=== PATIENT | male | born 1985 | race Caucasian/White ===

== ENCOUNTER 2021-04-09 13:28 | Emergency (ER) | payer OTHER, MEDICARE, MEDICAID, SELFPAY ==
--- NOTE | ~2021-04-09 | XR_ITS ---
EXAMINATION: RIGHT FOOT AND ANKLE X-RAY CLINICAL INFORMATION: Pain COMPARISON: None TECHNIQUE: 3 views of the right foot and 3 views of the right ankle FINDINGS: Right ankle: There are soft tissue ossifications inferior to the lateral malleolus. These appear well corticated with smooth margins and are more suggestive of old trauma than acute trauma. No definite acute fracture is seen. The ankle mortise is normal. There is lateral soft tissue swelling. Right foot: Bone alignment is normal. No fracture or dislocation is seen. Joint spaces are normal. There are small accessory perineal ossicles. Soft tissues are otherwise normal. XR/XR foot RT min 3V IMPRESSION: Lateral soft tissue swelling at the ankle. Well-corticated soft tissue ossifications inferior to the lateral malleolus more suggestive of old injury. No definite acute fracture seen.
--- NOTE | ~2021-04-09 | XR_ITS ---
EXAMINATION: RIGHT FOOT AND ANKLE X-RAY CLINICAL INFORMATION: Pain COMPARISON: None TECHNIQUE: 3 views of the right foot and 3 views of the right ankle FINDINGS: Right ankle: There are soft tissue ossifications inferior to the lateral malleolus. These appear well corticated with smooth margins and are more suggestive of old trauma than acute trauma. No definite acute fracture is seen. The ankle mortise is normal. There is lateral soft tissue swelling. Right foot: Bone alignment is normal. No fracture or dislocation is seen. Joint spaces are normal. There are small accessory perineal ossicles. Soft tissues are otherwise normal. XR/XR ankle RT 2V IMPRESSION: Lateral soft tissue swelling at the ankle. Well-corticated soft tissue ossifications inferior to the lateral malleolus more suggestive of old injury. No definite acute fracture seen.
[2021-04-09 14:29] VITALS: BP 111/76; PULSE 84; RESP 20; TEMP 36.7; O2SAT 98; BMI 23.7
[2021-04-09 15:57] VITALS: BP 148/88; PULSE 64; RESP 16; TEMP 36.1; O2SAT 99
--- NOTE | 2021-04-09 16:40 | ED.LOWEXIN ---
HPI - Extremity Injury (Lower) General Chief Complaint: Extremity Injury, Lower Stated Complaint: running and heard a pop Time Seen by Provider: 04/09/21 14:49 Source: patient Mode of arrival: wheelchair Limitations: no limitations History of Present Illness HPI Narrative: 35-year-old male presents for right ankle pain. [place] got his foot caught, and he inverted his ankle. Now he cannot bear weight on his right foot. He has no numbness or tingling in his toes or his foot, but has swelling on the lateral side of his right ankle. Related Data Allergies Allergy/AdvReac Type Severity Reaction Status Date / Time aripiprazole [From Abilify] Allergy Palpitation Verified 04/09/21 16:44 s Review of Systems Review of Systems: Constitutional : No Weight loss, No Fever, No Chills, No Night Sweats,No Fatigue, No Malaise ENT/Mouth : No Hearing loss, No Ear Pain, No Nasal Congestion, NoSinus Pain, No Hoarseness, No sore throat, No Rhinorrhea, NoSwallowing Difficulty Eyes: No Eye Pain, No Swelling, No Redness, No Foreign Body, NoDischarge, No Vision Changes Cardiovascular : No Chest Pain, No SOB, No Dyspnea on Exertion, NoOrthopnea, No Edema, No Palpitations Respiratory : No Cough, No Sputum, No Wheezing, No Smoke Exposure, No Dyspnea Gastrointestinal : No Nausea, No Vomiting, No Diarrhea, NoConstipation, No abdominal Pain, No Hematochezia, No Melena Genitourinary : no irregular bleeding, No Dysuria, No UrinaryFrequency, No Hematuria, No Urinary Incontinence, No Urgency, No FlankPain, No Urinary Flow Changes, No Hesitancy Musculoskeletal : ankle pain, right ankle swelling Skin : No Skin Lesions, No rash Neuro : No Weakness, No Numbness, No Paresthesias, No Loss ofConsciousness, No Dizziness, No Headache Yes all other systems are reviewed and are negative [facility] Past Medical History Medical History (Updated 04/09/21 @ 16:50 by AJ Arevalo) Schizo affective schizophrenia Surgical History (Updated 04/09/21 @ 14:32 by Araceli Barrow) History of facial surgery Social History Social History Advance Directives: No Advance Directives Information Provided: No Physical Exam Vital Signs: Vital Signs: Last Vital Signs Temp 97.0 F 04/09/21 15:57 Pulse 64 04/09/21 15:57 Resp 16 04/09/21 15:57 BP 148/88 H 04/09/21 15:57 Pulse Ox 99 04/09/21 15:57 Body Mass Index 23.7 Appearance: Alert. Oriented X3. No acute distress. Head: Normal external exam. Normocephalic. Atraumatic. ?No Graham signs noted. No raccoon eyes noted Eyes: PERRLA. EOMI. Conjunctiva and sclera normal. Eyelids normal. Neck: Normal inspection. Neck supple. FROM. No adenopathy. Thyroid Normal. No meningeal signs. No neck mass noted. CVS: Normal heart rate and rhythm. Heart sound normal. Pulses normal throughout. ?No murmurs/rales/gallops. Respiratory: No respiratory distress. Painless inspiration. Breath sounds normal. No wheezes/rales/rhonchi noted. Chest nontender. ??No accessory muscle usage noted or decreased air movement noted. Back: ?No CVA tenderness. ?Full range of motion noted. ?No rashes/lesion/induration/fluctuance or signs of infection noted. Skin: Skin warm and dry. ?Normal skin color. ?Normal skin turgor. No rashes/lesions/lacerations noted. Extremities: left lateral ankle swelling, tenderness and erythema. Neuro: Oriented X 3. ?No motor deficit. ?No sensory deficit. ?Reflexes normal. ?No focal neuro deficits noted. Vascular: + 2 distal pedal pulses/+2 dorsalis pedis b/l. ?Normal cap refill. ?No cyanosis noted to lower extremity toes nails. Course Course Course Narrative: 35-year-old presents with right ankle injury. X-ray shows right lateral soft tissue swelling, intact ankle mortise, no acute fracture or dislocation. On exam, patient has a ATLF sprain, lateral right swelling and tenderness. Provided Aircast, crutches, counseled rest, ice, compression, elevation, follow up with Ortho, return if worsening pain Discharge Plan Discharge Clinical Impression: Ankle sprain and strain Patient Disposition: Home, Self-Care Instructions: Ankle Sprain (ED), Crutch Instructions (ED), R.I.C.E. Treatment (ED) Additional Instructions: Please baby your ankle as we discussed, use the crutches and do not bear weight on your right ankle until you are seen by orthopedics. Please rest your right ankle, put ice on it for 10 minutes at a time 6 times a day, use the ankle splint as compression, and elevate your foot when you are able. As we discussed, the more you take care of this now, the less she will have trouble later. Please call Orthopedics at [phone]. Do not return to work until orthopedic sees you and clears you for work. Please alternate Tylenol and ibuprofen for pain. Take 1 or the other every 4 hours. For example, at midnight take 1000 mg of Tylenol, then at 4:00 a.m. take 800 mg ibuprofen, at 8:00 a.m. take 1000 mg of Tylenol, at noon take 800 mg of ibuprofen, at 4:00 p.m. take 1000 mg of Tylenol, at 8:00 p.m. take 800 mg of ibuprofen. Do not exceed 3000 mg of Tylenol in 24 hours. This method is proven to be as effective as an opioid for pain control. Referrals: Stas Hernandez MD [Physician] - 2 days (left ankle sprain) Stand Alone Forms: Work/School Release
== END 2021-04-09 17:14 | disposition home or self-care (01) ==
PROVIDERS: Emergency Provider Emergency Medicine; PCP Internal Medicine
DX: S93.401A Sprain of unspecified ligament of right ankle, initial encounter (principal); S96.911A Strain of unspecified muscle and tendon at ankle and foot level, right foot, initial encounter; X50.1XXA Overexertion from prolonged static or awkward postures, initial encounter; Y93.02 Activity, running; Y92.828 Other wilderness area as the place of occurrence of the external cause; Y99.9 Unspecified external cause status
CPT/HCPCS: 73600; 73630; 99283; 99284

== ENCOUNTER 2021-04-11 15:37 | Emergency (ER) | payer OTHER, MEDICARE, MEDICAID, SELFPAY ==
--- NOTE | ~2021-04-11 | US_ITS ---
EXAMINATION: NONINVASIVE ASSESSMENT OF THE ARTERIES OF THE RIGHT LOWER EXTREMITY Siva Steiner MD CLINICAL INFORMATION: Right foot/ankle injury with numbness TECHNIQUE: Right lower extremity duplex ultrasound was performed with velocity measurements and waveform analysis in the common femoral arteries, profunda femoris arteries, proximal mid and distal superficial femoral arteries and tibial vessels. This study was performed only at rest. COMPARISON: None FINDINGS: Velocities in cm/sec and phasicity as well as the presence of plaque are reported below. Multiphasic flow is present throughout. No significant plaque is detected. RIGHT LEG: Common Femoral: 85 Profunda Femoris: 72 Proximal SFA: 78 Mid SFA: 89 Distal SFA: 82 Popliteal: 45 Posterior tibial: 46 US/US arterial duplex LE RT IMPRESSION: There is no evidence of any hemodynamically significant lower extremity arterial disease by pressure, waveform or duplex Doppler criteria at rest.
--- NOTE | ~2021-04-11 | XR_ITS ---
EXAMINATION: XR TIBIA AND FIBULA, RIGHT CLINICAL INFORMATION: Trauma with left foot and ankle swelling COMPARISON: 04/09/2021 TECHNIQUE: AP and lateral views of the right tibia and fibula were obtained. FINDINGS: Again seen is lateral soft tissue swelling but significantly improved when compared with the study from 2 days ago. Well-corticated bony density seen adjacent to the lateral malleolus which were also seen previously and are indicative of remote trauma rather than an acute injury. No acute finding is seen. XR/XR tibia fibula RT 2V IMPRESSION: Improving soft tissue swelling lateral malleolus. No evidence of an acute injury.
[2021-04-11 15:44] VITALS: BP 111/66; PULSE 69; RESP 24; TEMP 32; O2SAT 97; BMI 23.7
[2021-04-11 17:13] VITALS: BP 105/65; PULSE 55; RESP 16; O2SAT 98
--- NOTE | 2021-04-11 17:20 | PC.NURSE ---
Patient in NAD, breathing even and unlabored. Patient reporting pain is manageable at this time. Pending US.
--- NOTE | 2021-04-11 19:44 | ED.EXTPRO ---
HPI - Extremity Problem General Chief complaint: Extremity Problem Stated complaint: Leg numbness Time Seen by Provider: 04/11/21 15:50 Source: patient Mode of arrival: ambulatory Limitations: no limitations History of Present Illness HPI Narrative: 35-year-old male who presents emergency department for evaluation of numbness of his right leg. The patient states that [place] he stepped on a rock and inverted his right foot and ankle causing an ankle injury, this occurred on 04/09/2021. Patient was seen here in the emergency department and had a negative x-ray of his ankle and was treated with a stirrup splint and crutches. The patient states that he has now developed numbness of his right foot, ankle, the back of his knee and the back of his thigh. He states the numbness is a constant sensation, he denies pain in these areas, he denies pain in his back. The patient states that he has been taking ibuprofen and Tylenol occasionally for his pain. He denied any weakness of his lower extremity. He denied loss of bowel or bladder control. Related Data Previous Rx's Medication Instructions Recorded prednisone 20 mg tablet 60 mg PO DAILY 5 Days #15 tab 04/11/21 Allergies Allergy/AdvReac Type Severity Reaction Status Date / Time aripiprazole [From Abilify] Allergy Palpitation Verified 04/09/21 16:44 s [facility] Past Medical History [facility] Narrative: Social history: Patient denies tobacco use. He denies alcohol use. He denies drug use. Medical History Schizo affective schizophrenia Surgical History History of facial surgery Social History Social History Advance Directives: No Advance Directives Information Provided: Yes Physical Exam Vital Signs: Vital Signs: Last Vital Signs Temp 89.6 F L 04/11/21 15:44 Pulse 55 04/11/21 17:13 Resp 16 04/11/21 17:13 BP 105/65 04/11/21 17:13 Pulse Ox 98 04/11/21 17:13 Body Mass Index 23.7 Const: General: cooperative and healthy appearing Nutritional Appearance: well nourished Orientation/consciousness: oriented to person and oriented to place HENMT: Head: Yes normocephalic and Yes atraumatic Eyes: General: appearance normal, both eyes and all related structures Neck: Neck: Yes full ROM, Yes trachea midline and Yes supple Chest: Chest palpation & inspection: normal inspection of the chest Resp: Effort & Inspection: normal respiratory effort GI: Inspection: Yes normal to inspection : General: Yes no CVA tenderness Back/Spine/Pelvis: Back: no CVA tenderness Cervical Spine: normal cervical lordosis Thoracic/Lumbar Spine: thoracic and lumbar spine normal to inspection, No paraspinal muscle tenderness, No thoracic spinal tenderness, No lumbar spinal tenderness and other (Negative straight leg raise bilaterally) Neuro: General: oriented to person and oriented to place Cranial nerves: Yes CN's II-XII intact bilaterally Cognition (Neuro): normal cognition Motor exam (neuro): 5/5 motor strength present throughout Extrem: Other: The patient has soft tissue swelling and ecchymoses of his foot and ankle with tenderness palpation over the lateral malleolus, he does have peripheral pulses bilaterally symmetric, the right foot and ankle is very cold to the touch compared to the left. Course Course Course Narrative: 35-year-old male who presents emergency department for evaluation of numbness of his right leg after sustaining in inversion ankle injury 2 days prior. Patient's physical examination did reveal ecchymosis of the foot and ankle with a coolness of the right foot and ankle compared to the left. Patient had no back tenderness. He had no tenderness palpation of his knee or proximal calf. I am concerned the patient may have injured popliteal vascular structure or that he may have a proximal fracture was tib-fib. Therefore a x-ray of the tib-fib was ordered and there is no acute fracture seen. Doppler ultrasound of the popliteal fossa revealed no arterial destruction. At this time I do not have a clear etiology for the patient's numbness. It is possible this could be radicular pain in the patient may have injured his back when he was running. The patient started on prednisone 60 mg once a day for 5 days. He was given his 1st dose here in the emergency department. He is advised to take Tylenol for pain as well. He was advised to continue to use the crutches and the ankle stirrup splint. He was discharged home. The patient was given verbal and printed instructions prior to discharge. The patient was advised to follow-up with his PCP in 2 days and to return to the emergency department if his symptoms get worse or if he develops any new symptoms that are concerning to him. Discharge Plan Discharge Clinical Impression: Numbness and tingling of right leg Inversion sprain of right ankle Qualifiers: Encounter type: subsequent encounter Qualified Code(s): S93.401D - Sprain of unspecified ligament of right ankle, subsequent encounter Patient Disposition: Home, Self-Care Instructions: Ankle Sprain (ED), Ankle Stirrup Splint (ED) Additional Instructions: The x-ray of your right leg from the knee down revealed no broken bones which is reassuring. The radiologist suspects that you may have a slight avulsion of the distal fibula but this is treated just like a badly sprained ankle with a stirrup splint and crutches. The duplex ultrasound your right knee revealed no disruption of the blood flow to your leg from the knee down which is reassuring. At this time I do not have a clear cause for the numbness in your right leg, it is most likely caused by inflammation therefore I want to treat you with strong anti-inflammatory steroid. Take prednisone 20 mg pills, 3 pills once a day for 5 days. While you taking prednisone do not take any NSAIDs (ibuprofen, Advil, Motrin, naproxen, Aleve). Take Tylenol (acetaminophen) 500 mg pills, 2 pills every 4 to 6 hours as needed for pain. Follow-up with the orthopedic doctor in 2 days as scheduled. Please return to the emergency department if your symptoms get worse or if you develop any symptoms that are concerning to you. Prescriptions: New prednisone 20 mg tablet 60 mg PO DAILY 5 Days Qty: 15 RF: 0
[2021-04-11] MEDS: predniSONE 20 MG TABLET 60 MG PO (20:16)
== END 2021-04-11 20:26 | disposition home or self-care (01) ==
PROVIDERS: Emergency Provider Emergency Medicine Emergency Medical Services; PCP Internal Medicine
DX: S93.401A Sprain of unspecified ligament of right ankle, initial encounter (principal); R20.0 Anesthesia of skin; M25.571 Pain in right ankle and joints of right foot; W01.0XXA Fall on same level from slipping, tripping and stumbling without subsequent striking against object, initial encounter; Y93.9 Activity, unspecified; Y92.9 Unspecified place or not applicable; Y99.9 Unspecified external cause status; Z79.899 Other long term (current) drug therapy
CPT/HCPCS: 29515; 73590; 93926; 99284

== ENCOUNTER → 2021-04-13 14:21 | Outpatient (BNVA) | payer OTHER, MEDICARE, MEDICAID, SELFPAY | PROVIDERS: Visit Provider Physician Assistant ==

== ENCOUNTER 2021-06-12 11:00 | Outpatient (RCR) | payer OTHER, MEDICARE, MEDICAID, SELFPAY ==
--- NOTE | 2021-04-27 12:45 | MHC.PT.EP ---
[facility] [place] Office [place] Office [place] Office [address] Gloria Parson [address] [phone] F: [phone] F: [phone] F: [phone] F: [phone] Physical Therapy Plan of Care Date of Evaluation: Date of Surgery: Diagnosis: RIGHT ANKLE SPRAIN Assessment: 35 YO MALE REF TO PT FOR Rt LATERAL ANKLE SPRAIN SUSTAINED WHILE HIKING ON 04/09/21 WHICH REQUIRED AN EMS RESCUE- HE WENT TO THE ER AND THEN ->ORTHO CONSULT- Pt WORE HIS WALKING BOOT BRIEFLY AND PRESENTED TODAY W/O ANY EXTERNAL SUPPORT (HE ALSO HAS A LACE-UP SUPPORT). OBJECTIVE FINDINGS: DECR AROM MEAGAN ANKLE EVER AND RT DF AND HIP ER; (+) EDEMA Rt ANKLE, (+) BRUISING Rt LAT HOU (APPROX TO PERONEUS BREVIS ORIGIN) AND DORSAL SIDE BASE OF Rt 2-4TH TOES; DECR PROPRIOC AND STABILITY IN Rt LE, STRENGTH DEFICITS IN Rt ANKLE AND FOOT INTRINSICS ,AND (+) PAIN W PALP RT INFEROPOST LAT MALL (CALCANEOFIB AND ANTEROTALOFIB LIG REGION. FUNCTIONALLY, Pt NOTES HE CAN PERFORM REGULAR ADLs BUT HAS BEEN AVOIDING RUNNING/ HIKING/ SKATEBOARDING- PHYSICALLY CHALLENGING ACTIVITIES. HE IS A GOOD CANDIDATE FOR SKILLED PT TO ADDRESS THE ABOVE FINDINGS AND ULTIMATELY GOAL OF GUIDING Pt W A SAFE RETURN TO PLOF. Frequency and Duration: The patient will be seen 2 X wk X 5 wks Short Term Goals: MONITOR BRUISING Rt LAT HOU AND BASE OF Rt 2-4 [address] EDEMA MGMT -> 2 WKS Pt IMPROVE Rt > Lt HIP ROTATION FLEXIBILITY IN 2 WKS Pt INCR AROM MEAGAN ANKLE EVERSION, Rt DF IN 2 WKS Pt'S Rt DISTAL LE PAIN DECR TO 2-3/10 W REG ADLs IN 2 WKS Hr Consultant Goals: Pt DEMON SLS Rt x 20 SEC IN 5 WKS Pt INDEP W HEP AND STRENGTH / STAB /PROPRIO PROGR AND SELF SX MGMT TECHN IN 5 WKS Pt DEMON APPROP MECHANICS W GAIT ON UNEVEN TERRAIN-> Lt JOG/ RUNNING IN 5 WKS Pt RESUME REG EXERCISE / PHYS DEMANDING ADLs/ ACTIVITY EVIDENT W IMPROVED LEFT SCORE BY AT LEAST 10 POINTS (45/80 AT EVAL) IN 5 WKS Treatment Plan: Modalities to reduce pain, spasms and effusion. Manual therapy to restore motion and function. Therapeutic exercise to improve strength and flexibility. Neuromuscular re-education for posture and balance. Therapeutic activities to return to functional activities of daily living. Electronically signed by: Iwona TorrePT Please sign and return to therapist. Thank you for your referral.
--- NOTE | 2021-06-15 09:28 | MHC.PT.DC ---
[facility] [place] Office [place] Office [place] Office [address] Gloria Parson [address] [facility] [phone] F: [phone] F: [phone] F: [phone] F: [phone] Physical Therapy Discharge Report Diagnosis: RIGHT ANKLE SPRAIN Date of Surgery: Date of Evaluation: 04/27/21 Date of Discharge: 06/15/21 Treatments to Date: 12 Cancellations to Date: 2 No Shows to Date: 1 Discharge Status: Achieved Goals Improved Function Independent with HEP Discharge Summary: Pt PROGR VERY WELL W HIGHER LEVEL STAB/ PROPRIO/ STRENGTHENING- PERFORMING HIGHER LEVEL DYNAMIC EXER W/O Rt ANKLE SUPPORT AND W/O Rt LAT ANKLE SXS- NO LONGER REQ IASTM OR KT- HE HAS A THOROUGH AND PROGRESSIVE HEP AND A RETURN TO RUNNING PROGRAM- HE IS D/C'D AT THIS TIME HAVING MET HIS PT GOALS. Electronically signed by: Iwona Torre,PT Please sign and return to therapist. Thank you for your referral.
== END 2021-06-15 09:29 | disposition home or self-care (01) ==
LOC: HO.PT 11:00
PROVIDERS: PCP Thoracic Surgery (Cardiothoracic Vascular Surgery); Visit Provider Physician Assistant
DX: S93.401A Sprain of unspecified ligament of right ankle, initial encounter (principal)
CPT/HCPCS: 97035; 97110; 97112; 97140; 97162